=== PATIENT | female | born 2005 | race Caucasian/White ===

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

== ENCOUNTER 2024-02-20 21:15 | Emergency (ER) | payer BC, SELFPAY ==
[2024-02-20 21:40] VITALS: BP 123/92; PULSE 86; RESP 16; TEMP 36.9; O2SAT 98; BMI 36.6
--- NOTE | 2024-02-20 21:58 | [facility].EDGENADL ---
Discharge Plan Disposition Patient Disposition: Home, Self-Care Prescriptions Prescriptions: No Action amoxicillin-pot clavulanate 875-125 mg tablet 1 tab PO BID Qty: 20 0RF Referrals Follow up/Referrals: Provider,MD Tete [Primary Care Provider] - See instructions Activity Restrictions/Add. Instructions Additional Instructions/Restrictions: Please follow-up with your primary care provider. Please return to the emergency department if you develop any new or worsening symptoms or become concerned for your health. Clinical Impressions Clinical Impression: Migraine Print Language Print Language: Luxembourgish Discharge ED Provider: Dexter Adam General Adult HPI <Dexter Adam MD - Last Filed: 02/21/24 00:38> General Chief complaint: Headache Stated complaint: Migraine,nausea Time Seen by Provider: 02/20/24 21:58 History of Present Illness HPI narrative: Patient is a 18-year-old past medical history of migraines presenting for headache. Patient said that for the last 3 days she has had a off-and-on headache with minimal relief with [id number] migraine medication. She used to have a migraine prevention medication that she used to take, but has not had it filled recently due to not being able to get into her primary care doctor. She said that this headache is around the same Related Data Previous Rx's ?Medication ?Instructions ?Recorded amoxicillin 875 mg-potassium 1 tab PO BID #20 tabs 06/29/23 clavulanate 125 mg tablet Allergies Allergy/AdvReac Type Severity Reaction Status Date / Time sumatriptan (From Imitrex) Allergy Unknown Verified 03/18/23 06:21 [facility] <Dexter Adam MD - Last Filed: 02/21/24 00:38> [facility] Disclaimer: The information contained in this section may have been updated after the patient was seen, as this information can be updated by other users. Medical History Depression Migraines Social History Smoking Status: Never smoker alcohol intake: never current occupational status: employed Travel in the last 8 weeks: None Have you lived/traveled outside [place] in past 30 days?: No Contact w/someone who lives/traveled outside [place] past 30 days?: No Exposure to someone with infectious disease in past 14 days?: No Do you have a fever (greater than 100.4 F or 38 C)?: No Have you tested positive for COVID-19: No Exposed to someone with COVID-19 in past 14 days?: No Do you have a sore throat?: No Do you have a cough?: No Do you have any weakness?: No Do you have any diarrhea?: No Are you experiencing any unusual bleeding?: No Do you have any muscle aches/pain?: No Do you have any abdominal pain?: No Are you experiencing loss of taste or smell?: No <Dexter Adam MD - Last Filed: 02/21/24 00:38> ROS Obtained: Yes All systems reviewed & no additional complaints except as documented Physical Exam <Dexter Adam MD - Last Filed: 02/21/24 00:38> General General appearance: alert and in no apparent distress Eye Eye exam: Present normal appearance ENT ENT exam: Present normal exam Chest Chest inspection: Present symmetric chest wall rise Respiratory Respiratory exam: Present normal lung sounds bilaterally; Absent respiratory distress Cardiovascular Cardiovascular exam: Present regular rate Abdominal Exam Abdominal exam: Present soft; Absent tenderness, guarding or rebound Extremities Exam Extremities exam: Present full ROM; Absent tenderness Neurological Exam Neurological exam: Present alert, oriented X3, CN II-XII intact and normal gait; Absent motor sensory deficit Psychiatric Psychiatric exam: Present normal affect Skin Skin exam: Present warm and normal color Medical Decision Making <Dexter Adam MD - Last Filed: 02/21/24 00:38> Medical Records Screening: Per USPSTF and CDC recommendations, given the prevalence of disease in our region, it is our hospital?s policy to screen for HIV and viral Hepatitis for all patients aged 18 and over and those with ongoing risk factors. Sukhwinder Inquiry Pt receiving controlled substance: No Vital Signs: 02/20/24 21:40 02/20/24 22:03 02/20/24 22:30 Temperature 98.5 F Temperature Source Oral Pulse Rate 82 86 Pulse Rate [Right] 86 Respiratory Rate 16 Blood Pressure 123/92 H 140/97 H Blood Pressure [Right Arm] 123/92 H Blood Pressure Mean 102 107 Blood Pressure Mean [Right Arm] 102 Blood Pressure Source [Right Arm] Automatic Cuff 02 Sat by Pulse Oximetry 98 98 99 Oxygen Delivery Method Room Air 02/20/24 23:00 02/20/24 23:30 02/21/24 00:28 Temperature 98.2 F Temperature Source Oral Pulse Rate 83 98 H 98 H Pulse Rate [Right] Respiratory Rate 18 Blood Pressure 138/91 H 145/97 H 145/97 H Blood Pressure [Right Arm] Blood Pressure Mean 106 113 Blood Pressure Mean [Right Arm] Blood Pressure Source [Right Arm] 02 Sat by Pulse Oximetry 100 97 Oxygen Delivery Method Room Air Lab Data Lab Results 02/20/24 22:40: Serum HCG, Qual Negative, HIV Ag/Ab Combo Qual Negative Orders (Tests/Meds): ED MEDICATIONS Discontinued Medications Generic Name Dose Route Start Last Admin Trade Name Freq PRN Reason Stop Dose Admin Acetaminophen 1,000 mg 02/20/24 22:19 02/20/24 23:13 Acetaminophen 500mg Tab PO 02/20/24 22:20 1,000 mg ONCE ONE Administration Magnesium Sulfate 2 gm in 50 mls @ 50 mls/hr 02/20/24 22:19 02/20/24 23:13 Magnesium Sulfate 2gm/50ml Premix IV 02/20/24 23:18 50 mls/hr ONCE ONE Administration Lactated Ringer's 500 mls @ 999 mls/hr 02/20/24 22:19 02/20/24 23:13 Lactated Ringer's 1000 Ml Bag IV 02/20/24 22:49 999 mls/hr .Q31M ONE Administration Ketorolac Tromethamine 15 mg 02/20/24 22:19 02/20/24 23:12 Ketorolac 30mg/Ml Vial IV 02/20/24 22:20 15 mg ONCE ONE Administration Prochlorperazine Edisylate 5 mg 02/20/24 22:19 02/20/24 23:12 Prochlorperazine 10mg/2ml Vial IV 02/20/24 22:20 5 mg ONCE ONE Administration ORDERS Category Date Time Status HIV (1&2) Antibody Rapid Stat Lab 02/20/24 22:30 Ordered HIV Combo Routine Lab 02/20/24 22:40 Completed Hep C Ab with Reflex to RNA Stat Lab 02/20/24 22:40 Received Serum Beta HCG [HCG Qualitative, Serum] Stat Lab 02/20/24 22:40 Completed Medical Decision Narrative: In summary, this 18-year-old presents to the emergency department today with migraine. On initial evaluation patient is hemodynamically stable alert in no acute distress. Patient is having a frontal headache which is similar to her previous migraines. She said this is not the worst 1 that she has had and typically improves with migraine,. Differential diagnosis includes but is not limited to cluster headache, tension headache, migraine. Based on these concerns, I ordered migraine cocktail and negative urine . Patient was signed out to Dr. Jones pending medication and symptomatic improvement <Alex Jones MD - Last Filed: 02/21/24 00:48> Medical Records Medical records reviewed: Yes I reviewed the patient's medical records. Vital Signs: 02/20/24 21:40 02/20/24 22:03 02/20/24 22:30 Temperature 98.5 F Temperature Source Oral Pulse Rate 82 86 Pulse Rate [Right] 86 Respiratory Rate 16 Blood Pressure 123/92 H 140/97 H Blood Pressure [Right Arm] 123/92 H Blood Pressure Mean 102 107 Blood Pressure Mean [Right Arm] 102 Blood Pressure Source [Right Arm] Automatic Cuff 02 Sat by Pulse Oximetry 98 98 99 Oxygen Delivery Method Room Air 02/20/24 23:00 02/20/24 23:30 02/21/24 00:28 Temperature 98.2 F Temperature Source Oral Pulse Rate 83 98 H 98 H Pulse Rate [Right] Respiratory Rate 18 Blood Pressure 138/91 H 145/97 H 145/97 H Blood Pressure [Right Arm] Blood Pressure Mean 106 113 Blood Pressure Mean [Right Arm] Blood Pressure Source [Right Arm] 02 Sat by Pulse Oximetry 100 97 Oxygen Delivery Method Room Air Lab Data Lab Results 02/20/24 22:40: Serum HCG, Qual Negative, HIV Ag/Ab Combo Qual Negative Orders (Tests/Meds): ED MEDICATIONS Discontinued Medications Generic Name Dose Route Start Last Admin Trade Name Sylvesterq PRN Reason Stop Dose Admin Acetaminophen 1,000 mg 02/20/24 22:19 02/20/24 23:13 Acetaminophen 500mg Tab PO 02/20/24 22:20 1,000 mg ONCE ONE Administration Magnesium Sulfate 2 gm in 50 mls @ 50 mls/hr 02/20/24 22:19 02/20/24 23:13 Magnesium Sulfate 2gm/50ml Premix IV 02/20/24 23:18 50 mls/hr ONCE ONE Administration Lactated Ringer's 500 mls @ 999 mls/hr 02/20/24 22:19 02/20/24 23:13 Lactated Ringer's 1000 Ml Bag IV 02/20/24 22:49 999 mls/hr .Q31M ONE Administration Ketorolac Tromethamine 15 mg 02/20/24 22:19 02/20/24 23:12 Ketorolac 30mg/Ml Vial IV 02/20/24 22:20 15 mg ONCE ONE Administration Prochlorperazine Edisylate 5 mg 02/20/24 22:19 02/20/24 23:12 Prochlorperazine 10mg/2ml Vial IV 02/20/24 22:20 5 mg ONCE ONE Administration ORDERS Category Date Time Status HIV (1&2) Antibody Rapid Stat Lab 02/20/24 22:30 Ordered HIV Combo Routine Lab 02/20/24 22:40 Completed Hep C Ab with Reflex to RNA Stat Lab 02/20/24 22:40 Received Serum Beta HCG [HCG Qualitative, Serum] Stat Lab 02/20/24 22:40 Completed Medical Decision Narrative: In summary, this 18-year-old presents to the emergency department today with migraine. On initial evaluation patient is hemodynamically stable alert in no acute distress. Patient is having a frontal headache which is similar to her previous migraines. She said this is not the worst 1 that she has had and typically improves with migraine,. Differential diagnosis includes but is not limited to cluster headache, tension headache, migraine. Based on these concerns, I ordered migraine cocktail and negative urine . Patient was signed out to Dr. Jones pending medication and symptomatic improvement Robert OCAMPO: I assumed care of the patient at the time of handoff from the prior provider. On reassessment patient reports near symptomatic resolution. Reports that she feels well enough to go home. Patient discharged in stable condition with return precautions. Critical Care <Dexter Adam MD - Last Filed: 02/21/24 00:38> Critical Care Time Critical Care Time: No
[2024-02-20 22:03] VITALS: BP 123/92; PULSE 82; O2SAT 98
[2024-02-20 22:30] VITALS: BP 140/97; PULSE 86; O2SAT 99
[2024-02-20 23:00] VITALS: BP 138/91; PULSE 83; O2SAT 100
[2024-02-20 23:03] LABS: HCG Qualitative, Serum Negative (Negative)
[2024-02-20] MEDS: PROCHLORPERAZINE 10MG/2ML VIAL 5 MG IV (23:12)
[2024-02-20] MEDS: KETOROLAC 30MG/ML VIAL 15 MG IV (23:12)
[2024-02-20] MEDS: ACETAMINOPHEN 500MG TAB 1000 MG PO (23:13)
[2024-02-20] MEDS: LACTATED RINGERS 1000ML 500 ML 999 ML IV (23:13)
[2024-02-20] MEDS: MAGNESIUM SULFATE IN WATER 2 GM/50 ML PIGGYBACK IV (23:13)
[2024-02-20 23:30] VITALS: BP 145/97; PULSE 98; O2SAT 97
[2024-02-20 23:47] LABS: HIV Combo NEGATIVE (Negative)
[2024-02-21 00:28] VITALS: BP 145/97; PULSE 98; RESP 18; TEMP 36.8; O2SAT 97
[2024-02-24 05:10] LABS: HCV Ab Non Reactive (Non Reactive)
== END 2024-02-21 00:34 | disposition home or self-care (01) ==
PROVIDERS: Emergency Provider Student in an Organized Health Care Education/Training Program
DX: G43.909 Migraine, unspecified, not intractable, without status migrainosus (principal); R11.0 Nausea
CPT/HCPCS: 84703; 86803; 87389; 96361; 96365; 96374; 96375; 99283; J0780; J1885; J3475; J7120

== ENCOUNTER 2024-06-24 15:00 | Outpatient (CLI) | payer BC, SELFPAY ==
[2024-06-24 19:44] LABS: Thyroid Stimulating Hormone 1.22 uIU/mL (0.465-4.68)
[2024-06-26 08:12] LABS: LH 4.6 mIU/mL (.); Prolactin 13.1 ng/mL (4.8-33.4); Testosterone,Total 20 ng/dL (13-71)
== END 2024-06-24 23:59 | disposition home or self-care (01) ==
LOC: LAB.DROPOF 06-27 09:56
PROVIDERS: PCP Family Medicine; Visit Provider Family Medicine
DX: E28.2 Polycystic ovarian syndrome (principal)
CPT/HCPCS: 83001; 83002; 84146; 84403; 84443